=== PATIENT | male | born 1965 | race Caucasian/White ===

== ENCOUNTER → 2024-09-06 13:26 | Outpatient (BNVA) | payer SELFPAY | DX: M25.572 Pain in left ankle and joints of left foot (principal); M25.472 Effusion, left ankle; M77.32 Calcaneal spur, left foot | CPT/HCPCS: 73610; 73630 ==

== ENCOUNTER 2024-09-10 15:44 | Emergency (ER) | payer SELFPAY ==
--- OUTSIDE RECORDS SUMMARY | 2024-09-10 15:49 | XMS_ITS | Referral Summary ---
Author Organization [employer] ([place], [place], [place], [place]) Address [address] [place] [address] Care Team Providers Care Railcar Switcher Name Role Phone Javan Wynn MD Primary Care Provider [phone] Allergies Active Allergy Reactions Criticality Noted Date Comments Hydrocodone-Acetami nophen Other (See Comments) Low 09/19/2014 Liquid- Very hyperactive Medications triamterene-hy drochlorothiaz josh (MAXZIDE) 75-50 mg per tablet Take 1 tablet by mouth daily . Active ALPRAZolam (XANAX) 1 MG tablet Take 1 mg by mouth every night as needed for Anxiety. Activ e metoprolol (TOPROL-XL) 50 MG 24 hr tablet Take 50 mg by mouth 2 (two) times daily. Active telmisartan (MICARDIS) 80 MG tablet Take 80 mg by mouth daily. Active anastrozole (ARIMIDEX) 1 mg tablet Take 1 mg by mouth every Friday, Friday, Friday. Active testosterone enanthate (DELATESTRYL) 200 mg/mL injection Inject intramuscularly every 14 (fourteen) days. Active azelastine (ASTELIN) 137 mcg (0.1 %) nasal spray 03/13/19 20 Active fluticasone propionate (FLONASE) 50 mcg/actuation nasal spray 03/13/19 20 Active Active Problems Problem Noted Date Diagnosed Date Acute carpal tunnel syndrome of right wrist 04/11 Chronic maxillary sinusitis 03/16/2019 MRSA infection 03/16/2019 Osteoarthritis of right knee 12/24/2018 Bucket handle tear of medial meniscus of right k nee 12/24/2018 Bursitis, prepatellar, right 03/10/2018 Carpal tunnel syndrome of left wrist 09/22/2014 Carpal tunnel syndrome of right wrist 09/08/2014 Social History Tobacco Use Types Packs/Day Years Used Date Smoking Tobacco: Never Smokeless Tobacco: Former Snuff Quit: 1998 Alcohol Use Standard Drinks/Week Comments Yes 1.7 (1 standard drink = 0.6 oz p ure alcohol) occasional Food Insecurity Answer Date Recorded Food run out past 12 months Not on file 02/10 Food did not last past 12 months Not on file 02/24/2023 Employment Answer Date Recorded Help finding and keeping a job Not on file 0 02/24/2023 Family and Community Support Answer Jose e Recorded Help with Day to Day Activities Not on file 02/24/2023 Feeling Lonely or Isolated Not on file 02/24 Educational Attainment Answer Date Harry rded Speak language other than Wallisian at home Not on file 02/24/2023 Want help with school or training Not on file 02/24/2023 Substance Use Answer Date Recorded Used prescription meds for non-medical reasons N ot on file 02/24/2023 Used illegal drugs past 12 months Not on file 02/24/2023 Sex and Gender Information Value Date Recorded Sex Assigned at Not on file Legal Sex Male 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 Gender Identity Not on file Sexual Orientation Not on file Last Filed Vital Signs Vital Sign Reading Time Taken Comments Blood Pressure 153/92 05/04/2020 4:30 PM CDT Pulse 81 05/04/2020 4:30 PM CDT Temperature 36.1 C (97 F) 05/04/2020 2:50 PM CDT Respiratory Rate 15 05/04/2020 4:30 PM CDT Oxygen Saturation 96% 05/04/2020 4:30 PM CDT Inhaled Oxygen Concentration - - Weight 133.8 kg (294 lb 15.6 oz) 2020 10:30 AM CDT Height 170.2 cm (5' 7.01 ) 05/04/2020 1 0:30 AM CDT Body Mass Index 46.19 05/04/2020 10:30 AM CDT Plan of Treatment Not on file Medical Devices Implanted Type Area Forest Law And Policy Professor Device Identifier Shelf Expiration Date Model / Serial / Lot Allograft Tiss Ambient 2.0cc [id number] - [id number] Implanted:Qty : 1 on 12/24/2018 by Jadiel James Jr., MD at [facility] IMPLANTS Right: Knee [employer] 06/09/2023 [id number] / [id number] / Insurance BCBS PPO POS EPO CHOICE Advance Directives For more information, please contact: [phone] * Full Code (Latest Code Status on File) Date Activated Date Inactivated Comments 05/04/2020 10:24 AM 05/04/2020 7:14 PM Question Answer Comments This code status was determined by: Patient * Full Code Date Activated Date Inactivated Comments 12/24/2018 10:53 AM 12/25/2018 10:18 AM Question Answer Comments This code status was determined by: Patient * Full Code Date Activated Date Inactivated Comments 03/10/2018 9:56 AM 12/24/2018 10:10 AM Question Answer Comments This code status was determined by: Patient * Full Code Date Activated Date Inactivated Comments 09/22/2014 6:00 AM 09/22/2014 11:20 AM Question Answer Comments This code status was determined by: Patient * Full Code Date Activated Date Inactivated Comments 09/08/2014 8:33 AM 09/08/2014 2:37 PM Question Answer Comments This code status was determined by: Patient Care Teams Railcar Switcher Relationship Specialty Start Date End Date Javan Wynn MD [address] [address] PCP - General Family Medicine 03/04/18
--- OUTSIDE RECORDS SUMMARY | 2024-09-10 15:49 | XMS_ITS | Encounter Summary ---
Author Organization [facility] Address [address] [place] [address] Care Team Providers Care Show Jumping Instructor Name Role Phone Javan Wynn MD Primary Care Provider [phone] Encounter Details Date Type Department Care Team (Late st Contact Info) Description 12/03/2021 Legacy Scanned Document Encounter [facility] - Conversion [address] [place] [address] Social History Tobacco Use Types Packs/Day Years Used Date Smoking Tobacco: Light Smoker Sex and Gender Information Value Date Recorded Sex Assigned at Male 09/16/2023 10:32 AM CDT Legal Sex Male 3:47 PM CDT Gender Identity Male 05/03/2023 3:47 PM CDT Sexual Orientation Not on file documented as of this encounter Plan of Treatment Not on file documented as of this encounter Visit Diagnoses Not on filedocumented in this encounter Care Teams Show Jumping Instructor Relationship Specialty Start Date End Date Javan Wynn MD [address] [place] [phone] PCP - General Family Medicine 11/26/17 documented as of this encounter
--- OUTSIDE RECORDS SUMMARY | 2024-09-10 15:49 | XMS_ITS | Encounter Summary ---
Author Organization [facility] Address [address] [place] [address] Care Team Providers Care Gas Meter Repair Supervisor Name Role Phone Javan Wynn MD Primary Care Provider [phone] Encounter Details Date Type Department Care Team (Late st Contact Info) Description 12/03/2021 Legacy Scanned Document Encounter [facility] - Conversion [address] [place] [address] Social History Tobacco Use Types [...] on filedocumented in this encounter Care Teams Gas Meter Repair Supervisor Relationship Specialty Start Date End Date Javan Wynn MD [address] [place] [phone] PCP - General Family Medicine 11/26/17 documented as of this encounter
--- OUTSIDE RECORDS SUMMARY | 2024-09-10 15:49 | XMS_ITS | Encounter Summary ---
Author Organization [facility] Address [address] [place] [address] Care Team Providers Care Wrapper Stemmer Hand Name Role Phone Javan Wynn MD Primary Care Provider [phone] Encounter Details Date Type Department Care Team (Late st Contact Info) Description 12/03/2021 Legacy Scanned Document Encounter [facility] - Conversion [address] [place] [address] Social History Tobacco Use Types [...] on filedocumented in this encounter Care Teams Wrapper Stemmer Hand Relationship Specialty Start Date End Date Javan Wynn MD [address] [place] [phone] PCP - General Family Medicine 11/26/17 documented as of this encounter
--- OUTSIDE RECORDS SUMMARY | 2024-09-10 15:49 | XMS_ITS | Encounter Summary ---
Author Organization [facility] Address [address] [place] [address] Care Team Providers Care Human Projectile Name Role Phone Javan Wynn MD Primary Care Provider [phone] Encounter Details Date Type Department Care Team (Late st Contact Info) Description 12/03/2021 Legacy Scanned Document Encounter [facility] - Conversion [address] [place] [address] Social History Tobacco Use Types [...] on filedocumented in this encounter Care Teams Human Projectile Relationship Specialty Start Date End Date Javan Wynn MD [address] [place] [phone] PCP - General Family Medicine 11/26/17 documented as of this encounter
--- OUTSIDE RECORDS SUMMARY | 2024-09-10 15:49 | XMS_ITS | Encounter Summary ---
Author Organization [facility] Address [address] [place] [address] Care Team Providers Care Patient Liaison Name Role Phone Javan Wynn MD Primary Care Provider [phone] Encounter Details Date Type Department Care Team (Late st Contact Info) Description 12/03/2021 Legacy Scanned Document Encounter [facility] - Conversion [address] [place] [address] Social History Tobacco Use Types [...] on filedocumented in this encounter Care Teams Patient Liaison Relationship Specialty Start Date End Date Javan Wynn MD [address] [place] [phone] PCP - General Family Medicine 11/26/17 documented as of this encounter
--- OUTSIDE RECORDS SUMMARY | 2024-09-10 15:49 | XMS_ITS | Clinical Summary ---
Author Organization [employer] ([place], [place], [place], [place]) Address [address] [place] [address] Care Team Providers Care Operations Support Representative Name Role Phone Javan Wynn MD Primary Care Provider Allergies Active Allergy Reactions Criticality Noted Date [...] Carpal tunnel syndrome of right wrist 09/08/2014 Family History Medical History Relation Name Comments Heart disease Father Cancer Mother Relation Name Status Comments Father (Age 68) Mother (Age 66) cancer Social History Tobacco Use Types Packs/Day Years [...] Date Harry rded Speak language other than [place] Islander at home Not on file 02/24/2023 Want help with school or training Not on file 02/24/2023 Substance Use Answer Date Recorded Used prescription meds for non-medical reasons N ot on file 02/24/2023 Used illegal drugs past 12 months Not on file 02/24/2023 Sex and Gender Information Value Date Recorded Sex Assigned at Not on file 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 Gender Identity Not on file Sexual Orientation [...] on file Medical Devices Implanted Type Area Hog Cutter Device Identifier Shelf Expiration Date Model / Serial / Lot Allograft Tiss Ambient 2.0cc [id number] - [id number] Implanted:Qty : 1 on 12/24/2018 by Jadiel James Jr., MD at [facility] IMPLANTS Right: Knee [employer] 06/09/2023 [id number] / [id number] / Insurance BC PPO POS EPO CHOICE Advance Directives For more information, please contact: [phone] * Full Code (Latest Code Status on [...] status was determined by: Patient Care Teams Operations Support Representative Relationship Specialty Start Date End Date Javan Wynn MD [address] [address] PCP - General Family Medicine 03/04/18
--- OUTSIDE RECORDS SUMMARY | 2024-09-10 15:49 | XMS_ITS | Clinical Summary ---
Author Organization [facility] Address [address] [place] [address] [place] [address] Care Team Providers Care Fire Patrol Name Role Phone Javan Wynn MD Primary Care Provider [phone] Allergies Active Allergy Reactions Criticality Noted Date Comments Cefuroxime 03/03/2012 Other Reaction(s): Unknown Data migrated from [facility] on 06/07/14. Originally documented as CEFTIN. Hydrocodone-Acetaminophen Low 09/19/2014 Other Reaction(s): Other (See Comments), Other (See Comments) Liquid- Very hyperactive Medications testosterone cypionate (Depo-Testoster one) 200 MG/ML injectionIndica tions:Hypogonad ism male Inject 1 mL into the shoulder, thigh, or buttocks every 7 days. 4 mL 5 4 Active triamterene-hyd rochlorothiazid e (Maxzide) 75-50 MG tablet 1 tab, PO, Daily, # 660 tab, 10 Refill(s), Pharmacy: [facility] #[id number], 170.18, cm, 09/13/19 9:07:00 CDT, Height, 137.386, kg, 09/13/19 9:07:00 CDT, Weight 1 Active metoprolol succinate XL (Toprol-XL) 50 MG 24 hr tablet Take 50 mg by mouth in the morning and 50 mg in the evening. Active telmisartan (MIcarDIS) 80 MG tablet See Instructions, TAKE 1 TABLET BY MOUTH EVERY DAY, # 420 tab, 0 Refill(s), Pharmacy: [facility] #[id number], 170.18, cm, 09/13/19 9:07:00 CDT, Height, 137.386, kg, 09/13/19 9:07:00 CDT, Weight 1 Active anastrozole (Arimidex) 1 MG chemo tablet See Instructions, TAKE 1 TABLET BY MOUTH 3 TIMES PER WEEK, # 108 tab, 10 Refill(s), Pharmacy: [facility] #[id number], 170.18, cm, 12/18/20 13:07:00 NEUROLOGY STROKE PHYSICIAN, Height, 134.545, kg, 12/18/20 13:07:00 NEUROLOGY STROKE PHYSICIAN, Weight 2 Active polycarbophil 625 MG tablet Take by mouth 1 time each day. Active testosterone cypionate (Depo-Testoster one) 200 MG/ML injectionIndica tions:Hypogonad ism male INJECT 1 ML INTO THE SHOULDER, THIGH, OR BUTTOCKS EVERY 7 DAYS. 4 mL 5 5 12/06/19 25 Active Social History Tobacco Use Types Packs/Day Years Used Date Smoking Tobacco: Light Smoker Sex and Gender Information Value Date Recorded Sex Assigned at Male 09/16/2023 10:32 AM CDT Legal Sex Male 3:47 PM CDT Gender Identity Male 05/03/2023 3:47 PM CDT Sexual Orientation Not on file Last Filed Vital Signs Vital Sign Reading Time Taken Comments Blood Pressure 145/77 11/10/2023 3:20 PM CDT Pulse 76 11/10/2023 3:20 PM CDT Temperature 36 C (96.8 F) 11/10/2023 3:20 PM CDT Respiratory Rate - - Oxygen Saturation 96% 11/10/2023 3:20 PM CDT Inhaled Oxygen Concentration - - Weight 106 kg (234 lb) 11/10/2023 3:20 PM CDT Height 170.2 cm (5' 7 ) 11/10/2023 3:20 PM CDT Body Mass Index 36.65 11/10/2023 3:20 PM CDT Plan of Treatment Health Maintenance Due Date Last Done Comments CT Colonography 1963 FIT-DNA 1963 FIT 1963 FOBT 1963 Sigmoidoscopy 1963 DTaP/Tdap/Td Vaccines (1 - Tdap) 11/18/1982 Pneumococcal Vaccine: 50+ Ye ars (1 of 2 - PCV) 11/18/1982 Pneumococcal Vaccine: Pediat rics (0 to 5 Years) and At-Risk Patients (6 to 64 Years) (1 of 2 - PCV) 11/18/1982 Zoster Vaccines (1 of 2) 11/18/2013 Annual Physical 12/18/2021 12/18/2020 Respiratory Syncytial Virus (RSV) Adult Series (1 - Risk 60-74 years 1-dose series) 2023 Influenza Vaccine (#1) 2024 Lipid Panel 12/18/2025 12/18/2020 Colonoscopy 10/10/2031 10/09/2021 Colorectal Cancer Screening 10/10/2031 HIB Vaccines Aged Out No longer eligi ble based on patient's age to complete this topic HPV Vaccines Aged Out No longer eligi ble based on patient's age to complete this topic Hepatitis A Vaccines Aged Out No long er eligible based on patient's age to complete this topic Hepatitis B Vaccines Aged Out No long er eligible based on patient's age to complete this topic IPV Vaccines Aged Out No longer eligi ble based on patient's age to complete this topic Meningococcal Vaccine Aged Out No quincy ross eligible based on patient's age to complete this topic Rotavirus Vaccines Aged Out No longer eligible based on patient's age to complete this topic Procedures Procedure Name Priority Date/Time Associated Diagnosis Comments COLONOSCOPY Routine 10/09/2021 12:00 AM CDT LIPID PANEL W/CALCULATED LDL Routine 12/18/2020 1:58 PM NEUROLOGY STROKE PHYSICIAN from Last 3 Months or Most Recently Relevant to Health Maintenance Results * Colonoscopy (10/09/2021 12:00 AM CDT) Anatomical Region Laterality Modality Endoscopy 10/09/2021 Narrative 10/09/2021 12:00 AM CDT (12/10/2021 14:02 - Elizabeth Chow) recheck in 1 yr us Generic Conversion ENDOSCOPY PROCEDURE ORDERABLE S Final Result * (ABNORMAL) Lipid Panel w/calculated LDL (12/18/2020 1:58 PM NEUROLOGY STROKE PHYSICIAN) HDL 42 > OR = 40 mg/dL [facility] Triglycerides 122 <150 mg/dL [facility] LDL (Calculated) 108(H) mg/dL [facility] RESULT CONVERSION Comment: Reference range: <100 Desirable range <100 mg/dL for primary prevention; <70 mg/dL for patients with CHD or diabetic patients with > or = 2 CHD risk factors. LDL-C is now calculated using the Kem-Rodriguez calculation, which is a validated novel method providing better accuracy than the Friedewald equation in the estimation of LDL-C. Kem SS et al. BEN. 2013;310(19): 3943-2395 (http://education.[employer]/faq/DRR583) Chol/HDL Ratio 4.1 <5.0 (CALC) [facility] RESULT CONVERSION Non HDL Chol 131(H) <130 mg/dL [facility] RESULT CONVERSION Comment: For patients with diabetes plus 1 major ASCVD risk factor, treating to a non-HDL-C goal of <100 mg/dL (LDL-C of <70 mg/dL) is considered a therapeutic option. Cholesterol 173 <200 mg/dL [facility] RESULT CONVERSION Comment: [facility]: [facility] [address] [place] [phone] Austen Quintanilla Blood 12/18/2020 1:58 PM NEUROLOGY STROKE PHYSICIAN us Javan Wynn MD LAB BLOOD ORDERABLES Final Resul t [facility] RESULT CONVERSION from Last 3 Months or Most Recently Relevant to Health Maintenance Care Teams Fire Patrol Relationship Specialty Start Date End Date Javan Wynn MD [address] [place] [phone] PCP - General Family Medicine 11/26/17
--- OUTSIDE RECORDS SUMMARY | 2024-09-10 15:49 | XMS_ITS | Patient Health Record ---
Author Organization [facility]. Valerio [facility] Address [address] [facility] [address] [place] [address] Care Team Providers Care Financial Analyst Intern Name Role Phone VALERIO MCGREGOR Unavailable [phone] Jadiel James Unavailable Unavailable Reason For Referral No Information Plan Of Treatment No Information Insurance Providers Payer Name Payer Address Payer Phone Subscriber Number Group Number Insured Name Patient Relationship to Insured Coverage Start Date Coverage End Date [facility] [address] [place] [address] [id number] Jimmy Garcia Self - patient is the insured
--- OUTSIDE RECORDS SUMMARY | 2024-09-10 15:49 | XMS_ITS | Encounter Summary ---
Author Organization [facility] Address [address] [place] [address] Care Team Providers Care Kier Drier Name Role Phone Javan Wynn MD Primary Care Provider [phone] Encounter Details Date Type Department Care Team (Late st Contact Info) Description 12/03/2021 Legacy Scanned Document Encounter [facility] - Conversion [address] [place] [address] Social History Tobacco Use Types [...] on filedocumented in this encounter Care Teams Kier Drier Relationship Specialty Start Date End Date Javan Wynn MD [address] [place] [phone] PCP - General Family Medicine 11/26/17 documented as of this encounter
--- OUTSIDE RECORDS SUMMARY | 2024-09-10 15:49 | XMS_ITS | Patient Health Record ---
Author Organization [facility] [address] Address [address] [facility] [address] [place] [address] Care Team Providers Care Construction Engineering Manager Name Role Phone De Randy Riggs Unavailable Reason For Referral No Information Medications Medication SIG (Take, Route, Frequency, Duration) Notes Start Date End Date Status Bactrim DS 800 mg-160 mg 1 tablet oral bid Active Toprol XL 100 mg 1 tablet extended re lease oral bid Active Micardis 20 mg 1 tablet oral qd Active Xanax XR 0.5 mg tablet extended rele ase oral prn Active Problems Problem Type SNOMED Code ICD Code Onset Dates Problem Status W/U Status Risk Notes Problem Benign essential hypertension (3522489) Essential hypertension, benign (401.1) Active confirmed Migrated Problem Edema (28485364) Edema (782.3) Active confirmed Migrated Problem NEEDS 5TH DIGIT! Family history of other cardiovascular diseases (V17.4) Active confirmed Migrated Plan Of Treatment No Information Insurance Providers Payer Name Payer Address Payer Phone Subscriber Number Group Number Insured Name Patient Relationship to Insured Coverage Start Date Coverage End Date [facility] - [employer] [address] [facility] [address] [place] [address] [id number] Jimmy Garcia Self - patient is the insured
--- OUTSIDE RECORDS SUMMARY | 2024-09-10 15:49 | XMS_ITS | Encounter Summary ---
Author Organization [facility] Address [address] [place] [address] Care Team Providers Care Meat Grinder Name Role Phone Javan Wynn MD Primary Care Provider [phone] Encounter Details Date Type Department Care Team (Late st Contact Info) Description 12/03/2021 Legacy Scanned Document Encounter [facility] - Conversion [address] [place] [address] Social History Tobacco Use Types [...] on filedocumented in this encounter Care Teams Meat Grinder Relationship Specialty Start Date End Date Javan Wynn MD [address] [place] [phone] PCP - General Family Medicine 11/26/17 documented as of this encounter
[2024-09-10 15:53] VITALS: BP 125/82; PULSE 98; RESP 16; TEMP 37; O2SAT 100; BMI 36.3
--- NOTE | 2024-09-10 16:17 | W.ED.EXTPRO ---
Documented by User: CHRISTINA Steinberg 09/13/24 08:59 HPI - Extremity Problem General: Chief complaint: Extremity Problem,Nontraumatic Stated complaint: lt leg swollen / hot to touch / painful Time Seen by Provider: 09/10/24 16:03 Source: patient and family Mode of arrival: ambulatory Limitations: no limitations History of Present Illness: Patient normal 58-year-old male to ED today with complaint of pain and swelling involving the left foot and ankle. Patient states on Friday he began noticing swelling to the left foot. No obvious injury or trauma. He states on Friday he was seen at the walk-in clinic and had x-rays of the foot and ankle obtained. He did mention on that visit that he had stepped in a hole the day before and thus was diagnosed with a sprain. Patient states he does remember stepping in the hole but does not feel like he injured anything as he continue to walk and work the rest of the day without any discomfort. Significant other states a few days ago he seemed like he had a low-grade temperature. Patient states he is ambulatory must use the help of a cane due to his pain. He has not noticed any edema or redness to his calf but states he has had a recent long car ride to [place] and is worried about a blood clot. No history of gout. No recent surgeries. Denies any recent cuts, scrapes, abrasions, bites, etc. MD Complaint: extremity pain, extremity swelling, cold extremity, joint swelling and joint pain Onset (ago): day(s) Pain Consistency: constant Location: left and upper extremity Radiation: none Relieving factors: nothing Exacerbating factors: range of motion, weight bearing, walking and palpation Associated symptoms: Reports no associated symptoms and fever(s) (reports low grade temp 99 something a few days ago); Deny chest pain Context: recent travel Related Data Home Medications ?Medication ?Instructions ?Recorded ?Confirmed metoprolol tartrate 50 mg tablet 50 mg PO BID 09/06/24 09/06/24 Previous Rx's ?Medication ?Instructions ?Recorded indomethacin 50 mg capsule 50 mg PO TID 5 days #15 caps 09/10/24 prednisone 20 mg tablet 60 mg (3 x 20 mg) PO ONCE 5 days 09/10/24 #15 tabs Allergies Allergy/AdvReac Type Severity Reaction Status Date / Time acetaminophen (From Vicodin) Allergy Mild ADR-Anxiety Verified 09/10/24 15:55 hydrocodone (From Vicodin) Allergy Mild ADR-Anxiety Verified 09/10/24 15:55 Review of Systems Const: Reports: fever(s) (reports low grade temp 99 something a few days ago); Denies: chills, body aches, fatigue or malaise Card: Denies: chest pain Resp: Denies: dyspnea Musc: Reports: extremity pain (L foot), extremity swelling (L foot), joint pain (L ankle), joint swelling (L ankle) and joint warmth; Denies: joint redness Neuro: Reports: difficulty walking (due to pain in L foot/ankle); Denies: numbness in extremities, weakness in extremities or sensory changes PFSH ED PFSH: Social History Smoking and tobacco/nicotine status: never used tobacco/nicotine Physical Exam Const: COMMON NORMALS: no acute distress, average body habitus, patient oriented x3, no limitations, healthy appearing, alert and well nourished Resp: COMMON NORMALS: normal respiratory effort and clear to auscultation bilaterally AUSCULTATION: clear to auscultation bilaterally Cardio: COMMON NORMALS: regular rate and regular rhythm RATE: regular rate RHYTHM: regular rhythm Extremity: COMMON NORMALS: capillary refill normal GENERAL: Yes normal exam except as noted LEFT LOWER EXTREMITY: Yes ankle joint Left ankle: Yes neurovascular exam (normal) and Yes foot & digits Left foot and digits: Yes neurovascular exam (normal) OTHER: pt has mild edema to dorsum of L foot and throughout L ankle joint; he has maximum tenderness to the ankle joint worse with palpation and ROM-do not feel pain is out of proportion to clinical examination; he has palpable DP/PT pulses; there is no obvious erythema/streaking; no cuts, scrapes, abrasions, bites, bacterial entry points; sensation appears normal; calf is supple; no palpable cords Neuro: COMMON NORMALS: patient oriented x3, moves all extremities, no focal motor deficits and no sensory deficits noted SENSORIUM/ORIENTATION: Yes alert Skin: COMMON NORMALS: no rashes or lesions noted GENERAL SKIN EXAM: no rashes or lesions noted TRAUMA: no lacerations or abrasions Course ED course: XRs from walk in visit a few days ago reviewed and unremarkable/negative for acute injury. US ordered here in ED is negative for DVT. CBC showing a normal white count. Pending remainder of labs at this time. 1643 Vital Signs: Vital signs: Vital Signs Temperature 98.6 F 09/10/24 15:53 Pulse Rate 93 09/10/24 17:54 Respiratory Rate 16 09/10/24 15:53 Blood Pressure 118/68 09/10/24 17:54 Pulse Oximetry 95 09/10/24 17:54 Oxygen Delivery Me thod Room Air 09/10/24 15:53 MDM - Extremity (Nontraumatic) Lab Data 09/10/24 16:31 09/10/24 16:31 Laboratory Results WBC 8.40 10^3/uL (3.29-11.43) 09/10/24 16:31 RBC 5.70 10^6/uL (3.85-5.65) H 09/10/24 16:31 Hgb 15.50 g/dL (11.27-16.99) 09/10/24 16:31 Hct 49.7 % (37-53) 09/10/24 16:31 MCV 87.2 fl (82-101) 09/10/24 16:31 MCH 27.2 pg (27-33) 09/10/24 16:31 MCHC 31.2 g/dL (30-55) 09/10/24 16:31 RDW 13.6 % (12.1-15.1) 09/10/24 16:31 Plt Count 274 10^3/cmm (157-399) 09/10/24 16:31 MPV 9.5 fL (7.4-10.4) 09/10/24 16:31 Neut % (Auto) 71.5 % 09/10/24 16:31 Lymph % (Auto) 17.4 % 09/10/24 16:31 [place] % (Auto) 6.3 % 09/10/24 16:31 Eos % (Auto) 4.0 % 09/10/24 16:31 Baso % (Auto) 0.6 % 09/10/24 16:31 Neut # (Auto) 6.00 10^3/uL (1.8-7.7) 09/10/24 16:31 Lymph # (Auto) 1.5 10^3/uL (0.8-4.8) 09/10/24 16:31 [place] # (Auto) 0.5 10^3/uL (0.2-0.9) 09/10/24 16:31 Eos # (Auto) 0.3 10^3/uL (0.0-0.8) 09/10/24 16:31 Baso # (Auto) 0.1 10^3/uL (0.0-0.1) 09/10/24 16:31 Nucleated RBC % (auto) 0 % 09/10/24 16:31 Nucleated RBCs # 0.0 /100WBC 09/10/24 16:31 Sodium 139 mmol/L (136-145) 09/10/24 16:31 Potassium 4.0 mmol/L (3.5-5.1) 09/10/24 16: Chloride 94 mmol/L (98-107) L 09/10/24 16:31 Carbon Dioxide 29 mmol/L (22-29) 09/10/24 16:31 Anion Gap 20.0 (5-19) H 09/10/24 16:31 BUN 20 mg/dL (8-23) 09/10/24 16:31 Creatinine 0.9 mg/dL (0.7-1.2) 09/10/24 16:31 GFR Calculation 86.1 mL/min (90-130) L 09/10/24 16:31 Glucose 101 mg/dL (65-115) 09/10/24 16:31 Calculated Osmolality 291 mOsm/kg (285-295) 09/10/24 16:31 Uric Acid 6.6 mg/dL (3.4-7.0) 09/10/24 16:31 Calcium 10.1 mg/dL (8.5-10.5) 09/10/24 16:31 Total Bilirubin 0.7 mg/dL (0.15-1.2) 09/10/24 16:31 AST 28 U/L (0-40) 09/10/24 16:31 ALT 38 U/L (0-41) 09/10/24 16:31 Alkaline Phosphatase 100 U/L (40-130) 09/10/24 16:31 C-Reactive Protein 117.6 mg/L (0.0-4.9) H 09/10/24 16:31 Total Protein 8.8 g/dL (6.6-8.7) H 09/10/24 16:31 Albumin 4.4 g/dL (3.5-5.2) 09/10/24 16:31 Globulin 4.4 g/dL (1.3-4.6) 09/10/24 16:31 Discharge Plan Discharge Patient Disposition: Home Clinical Impression: Gout Qualifiers: Gout site: ankle Gout etiology: unspecified cause Chronicity: acute Laterality: left Qualified Code(s): M10.9 - Gout, unspecified Condition: Stable Prescriptions: New prednisone 20 mg tablet 60 mg PO ONCE 5 Days Qty: 15 0RF indomethacin 50 mg capsule 50 mg PO TID 5 Days Qty: 15 0RF Rx Instructions: administer with food or milk No Action metoprolol tartrate 50 mg tablet 50 mg PO BID Discharge Orders: Discharge ED (Routine); Ordered 09/10/24 Ordered By: Kishor Jack Patient Instructions: Opioid Safety, Pain Management Activity Restrictions/Additional Instructions: Gout Discharge Instructions Diagnosis: Acute gout flare, treated with indomethacin and a prednisone taper. Medications: - Indomethacin: Take as prescribed. Monitor for gastrointestinal symptoms (dyspepsia, bleeding), renal dysfunction, and signs of fluid retention. NSAIDs are effective for acute gout but carry risks, especially in patients with underlying renal, gastrointestinal, or cardiovascular disease. - Prednisone: Take as prescribed, following the provided tapering schedule. Short courses (e.g., 30?40 mg/day, tapered over 5?10 days) are effective and generally well tolerated for acute gout. Monitor for mood changes, hyperglycemia, and signs of infection. - Hydrocodone (for breakthrough pain): Use only as needed for severe pain not controlled by the above. Limit use to the minimum necessary, and avoid driving or operating heavy machinery while taking opioids. Return Precautions: - Septic Arthritis: Although the current presentation and laboratory findings (normal WBC, uric acid at upper end of normal, chronically elevated CRP) are most consistent with gout, septic arthritis remains a critical consideration. Instruct the patient to return immediately for: - New or worsening fever - Chills or rigors - Rapidly increasing joint pain, swelling, redness, or warmth - Inability to move the affected joint - Systemic symptoms (e.g., confusion, hypotension) These symptoms warrant urgent re-evaluation and possible joint aspiration, as septic arthritis can coexist with or mimic gout and requires prompt intervention. - Medication Adverse Effects: - Signs of gastrointestinal bleeding (melena, hematemesis, severe abdominal pain) - New or worsening shortness of breath, edema, or chest pain - Severe mood changes, confusion, or psychosis (prednisone) - Allergic reactions (rash, swelling, difficulty breathing) - General: Return for any new or concerning symptoms, inability to tolerate oral medications, or lack of improvement after 3?5 days of therapy. Follow-Up Recommendations: - Schedule follow-up with primary care or rheumatology within 1?2 weeks to assess response to therapy and discuss long-term management. - Consider urate-lowering therapy if there are indications such as >= flares/year, tophi, chronic kidney disease, or radiographic damage. - Serial serum urate measurements may be indicated if urate-lowering therapy is initiated, with a target of <6 mg/dL per [place] [employer] guidelines. Additional Home Treatment Measures: - Topical Ice: Application of ice to the affected joint is conditionally recommended as an adjunct to pharmacologic therapy to reduce pain and inflammation. - Rest and Elevation: Rest the affected joint and elevate as tolerated. - Hydration: Maintain adequate oral hydration unless contraindicated. - Diet and Lifestyle: While evidence for dietary modification in acute flare management is limited, general measures such as limiting alcohol, red meat, and high-fructose foods may be discussed for long-term risk reduction. Instructions Regarding Hydrocodone: - Use hydrocodone only for severe breakthrough pain not controlled by NSAIDs and prednisone. - Take the lowest effective dose for the shortest possible duration. - Avoid combining with other sedating medications or alcohol. - Monitor for signs of opioid side effects (constipation, sedation, confusion, respiratory depression). Patient Education: - Educate on the natural history of gout, the importance of medication adherence, and the need for prompt evaluation if symptoms worsen or new symptoms develop. - Reinforce the importance of follow-up for consideration of urate-lowering therapy and ongoing management. Summary of Núñez Points: - Indomethacin and prednisone are first-line therapies for acute gout flares. - Monitor for signs of septic arthritis and medication adverse effects. - Use hydrocodone sparingly for breakthrough pain. - Follow up within 1?2 weeks for reassessment and consideration of long-term management. Print Language: Icelandic Sign Out Sign Out Data: Patient Sign Out occurred on 09/10/24 at 16:57. Patient's care was discussed, and care was transferred from CHRISTINA Steinberg to CHRISTINA Sanchez. Coding Level of Care Code ED Computational Theory Scientist for Rima Fwd Documented by User: CHRISTINA Sanchez 09/10/24 17:55 HPI - Extremity Problem General: Chief complaint: Extremity Problem,Nontraumatic Stated complaint: lt leg swollen / hot to touch / painful Time Seen by Provider: 09/10/24 16:03 Related Data Home Medications ?Medication ?Instructions ?Recorded ?Confirmed metoprolol tartrate 50 mg tablet 50 mg PO BID 09/06/24 09/06/24 Previous Rx's ?Medication ?Instructions ?Recorded indomethacin 50 mg capsule 50 mg PO TID 5 days #15 caps 09/10/24 prednisone 20 mg tablet 60 mg (3 x 20 mg) PO ONCE 5 days 09/10/24 #15 tabs Allergies Allergy/AdvReac Type Severity Reaction Status Date / Time acetaminophen (From Vicodin) Allergy Mild ADR-Anxiety Verified 09/10/24 15:55 hydrocodone (From Vicodin) Allergy Mild ADR-Anxiety Verified 09/10/24 15:55 [facility] ED PFSH: Social History Smoking and tobacco/nicotine status: never used tobacco/nicotine Course Vital Signs: Vital signs: Vital Signs Temperature 98.6 F 09/10/24 15:53 Pulse Rate 93 09/10/24 17:54 Respiratory Rate 16 09/10/24 15:53 Blood Pressure 118/68 09/10/24 17:54 Pulse Oximetry 95 09/10/24 17:54 Oxygen Delivery Me thod Room Air 09/10/24 15:53 MDM - Extremity (Nontraumatic) Medical Decision Making Care of patient was assumed to me at shift change by CHRISTINA Steinberg. This patient has been dealing with left ankle pain and swelling as been worsening for about a week, initially seen urgent care where he was diagnosed with a sprain but pain had been steadily worsening with reports that he was writhing in bed in the middle of night due to the pain. Denies a history of gout, he has remained ambulatory and has not been febrile or having any palpitations or general feeling of illness. Has been taking NSAIDs and states that this had been only helping a little bit. Comments that he never sees a doctor, but recently had labs drawn and with previous lab work he has always had increased in inflammatory markers, has always been nonspecific and without symptoms. Here he had an ultrasound that ruled out DVT, which was a concern of his. White blood cell count was normal, his vitals have been normal including no tachycardia or fever. CRP was elevated at 117.6, and uric acid though within normal limits was at upper limits of normal and working diagnosis is acute gout. Less likely is a septic joint, I feel that with his ability to bear weight, lack of pain out of proportion to exam, no significant redness or swelling to the joint, and lack of fever or systemic illness favors the diagnosis of gout for which we will begin treatment with indomethacin and prednisone. He was given Toradol here for pain which did help quite a bit, and I thoroughly discussed with the patient return precautions as previously mentioned, and he is to follow-up with his regular provider in [place] within the next 2 weeks for general reevaluation. A couple of Mclean pills were sent home for breakthrough pain, and he is discharged from the ER at this time. Patient and family in the room agrees with this plan. Lab Data 09/10/24 16:31 09/10/24 16:31 Laboratory Results WBC 8.40 10^3/uL (3.29-11.43) 09/10/24 16: RBC 5.70 10^6/uL (3.85-5.65) H 09/10/24 16:31 Hgb 15.50 g/dL (11.27-16.99) 09/10/24 16: Hct 49.7 % (37-53) 09/10/24 16: MCV 87.2 fl (82-101) 09/10/24 16: MCH 27.2 pg (27-33) 09/10/24 16: MCHC 31.2 g/dL (30-55) 09/10/24 16: RDW 13.6 % (12.1-15.1) 09/10/24 16:31 Plt Count 274 10^3/cmm (157-399) 09/10/24 16: MPV 9.5 fL (7.4-10.4) 09/10/24 16: Neut % (Auto) 71.5 % 09/10/24 16: Lymph % (Auto) 17.4 % 09/10/24 16: [place] % (Auto) 6.3 % 09/10/24 16: Eos % (Auto) 4.0 % 09/10/24 16:31 Baso % (Auto) 0.6 % 09/10/24 16: Neut # (Auto) 6.00 10^3/uL (1.8-7.7) 09/10/24 16: Lymph # (Auto) 1.5 10^3/uL (0.8-4.8) 09/10/24 16: [place] # (Auto) 0.5 10^3/uL (0.2-0.9) 09/10/24 16: Eos # (Auto) 0.3 10^3/uL (0.0-0.8) 09/10/24 16: Baso # (Auto) 0.1 10^3/uL (0.0-0.1) 09/10/24 16: Nucleated RBC % (auto) 0 % 09/10/24 16: Nucleated RBCs # 0.0 /100WBC 09/10/24 16:31 Sodium 139 mmol/L (136-145) 09/10/24 16: Potassium 4.0 mmol/L (3.5-5.1) 09/10/24 16: Chloride 94 mmol/L (98-107) L 09/10/24 16: Carbon Dioxide 29 mmol/L (22-29) 09/10/24 16: Anion Gap 20.0 (5-19) H 09/10/24 16: BUN 20 mg/dL (8-23) 09/10/24 16:31 Creatinine 0.9 mg/dL (0.7-1.2) 09/10/24 16:31 GFR Calculation 86.1 mL/min (90-130) L 09/10/24 16: Glucose 101 mg/dL (65-115) 09/10/24 16:31 Calculated Osmolality 291 mOsm/kg (285-295) 09/10/24 16:31 Uric Acid 6.6 mg/dL (3.4-7.0) 09/10/24 16:31 Calcium 10.1 mg/dL (8.5-10.5) 09/10/24 16:31 Total Bilirubin 0.7 mg/dL (0.15-1.2) 09/10/24 16:31 AST 28 U/L (0-40) 09/10/24 16:31 ALT 38 U/L (0-41) 09/10/24 16:31 Alkaline Phosphatase 100 U/L (40-130) 09/10/24 16:31 C-Reactive Protein 117.6 mg/L (0.0-4.9) H 09/10/24 16:31 Total Protein 8.8 g/dL (6.6-8.7) H 09/10/24 16:31 Albumin 4.4 g/dL (3.5-5.2) 09/10/24 16:31 Globulin 4.4 g/dL (1.3-4.6) 09/10/24 16:31 All radiology interpretation(s) finalized by discharge Discharge Plan Discharge Patient Disposition: Home Clinical Impression: Gout Qualifiers: Gout site: ankle Gout etiology: unspecified cause Chronicity: acute Laterality: left Qualified Code(s): M10.9 - Gout, unspecified Condition: Stable Prescriptions: New prednisone 20 mg tablet 60 mg PO ONCE 5 Days Qty: 15 0RF indomethacin 50 mg capsule 50 mg PO TID 5 Days Qty: 15 0RF Rx Instructions: administer with food or milk No Action metoprolol tartrate 50 mg tablet 50 mg PO BID Discharge Orders: Discharge ED (Routine); Ordered 09/10/24 Ordered By: Kishor Jack Patient Instructions: Opioid Safety, Pain Management Activity Restrictions/Additional Instructions: Gout Discharge Instructions Diagnosis: Acute gout flare, treated with indomethacin and a prednisone taper. Medications: - Indomethacin: Take as prescribed. Monitor for gastrointestinal symptoms (dyspepsia, bleeding), renal dysfunction, and signs of fluid retention. NSAIDs are effective for acute gout but carry risks, especially in patients with underlying renal, gastrointestinal, or cardiovascular disease. - Prednisone: Take as prescribed, following the provided tapering schedule. Short courses (e.g., 30?40 mg/day, tapered over 5?10 days) are effective and generally well tolerated for acute gout. Monitor for mood changes, hyperglycemia, and signs of infection. - Hydrocodone (for breakthrough pain): Use only as needed for severe pain not controlled by the above. Limit use to the minimum necessary, and avoid driving or operating heavy machinery while taking opioids. Return Precautions: - Septic Arthritis: Although the current presentation and laboratory findings (normal WBC, uric acid at upper end of normal, chronically elevated CRP) are most consistent with gout, septic arthritis remains a critical consideration. Instruct the patient to return immediately for: - New or worsening fever - Chills or rigors - Rapidly increasing joint pain, swelling, redness, or warmth - Inability to move the affected joint - Systemic symptoms (e.g., confusion, hypotension) These symptoms warrant urgent re-evaluation and possible joint aspiration, as septic arthritis can coexist with or mimic gout and requires prompt intervention. - Medication Adverse Effects: - Signs of gastrointestinal bleeding (melena, hematemesis, severe abdominal pain) - New or worsening shortness of breath, edema, or chest pain - Severe mood changes, confusion, or psychosis (prednisone) - Allergic reactions (rash, swelling, difficulty breathing) - General: Return for any new or concerning symptoms, inability to tolerate oral medications, or lack of improvement after 3?5 days of therapy. Follow-Up Recommendations: - Schedule follow-up with primary care or rheumatology within 1?2 weeks to assess response to therapy and discuss long-term management. - Consider urate-lowering therapy if there are indications such as >= flares/year, tophi, chronic kidney disease, or radiographic damage. - Serial serum urate measurements may be indicated if urate-lowering therapy is initiated, with a target of <6 mg/dL per [place] [employer] guidelines. Additional Home Treatment Measures: - Topical Ice: Application of ice to the affected joint is conditionally recommended as an adjunct to pharmacologic therapy to reduce pain and inflammation. - Rest and Elevation: Rest the affected joint and elevate as tolerated. - Hydration: Maintain adequate oral hydration unless contraindicated. - Diet and Lifestyle: While evidence for dietary modification in acute flare management is limited, general measures such as limiting alcohol, red meat, and high-fructose foods may be discussed for long-term risk reduction. Instructions Regarding Hydrocodone: - Use hydrocodone only for severe breakthrough pain not controlled by NSAIDs and prednisone. - Take the lowest effective dose for the shortest possible duration. - Avoid combining with other sedating medications or alcohol. - Monitor for signs of opioid side effects (constipation, sedation, confusion, respiratory depression). Patient Education: - Educate on the natural history of gout, the importance of medication adherence, and the need for prompt evaluation if symptoms worsen or new symptoms develop. - Reinforce the importance of follow-up for consideration of urate-lowering therapy and ongoing management. Summary of Núñez Points: - Indomethacin and prednisone are first-line therapies for acute gout flares. - Monitor for signs of septic arthritis and medication adverse effects. - Use hydrocodone sparingly for breakthrough pain. - Follow up within 1?2 weeks for reassessment and consideration of long-term management. Print Language: Icelandic Sign Out Sign Out Data: Patient Sign Out occurred on 09/10/24 at 16:57. Patient's care was discussed, and care was transferred from CHRISTINA Steinberg to CHRISTINA Sanchez. Coding Level of Care Code ED Computational Theory Scientist for Rima Vargas
--- NOTE | 2024-09-10 16:19 | USCV_ITS ---
Jimmy Garcia Age: 58 Gender: M : 1965 Exam Date: 09/10/2024 16:32 Ordering Phys: Arlette Isbell Technologist: Exam Location: [facility] [place]_ Indication: lt leg pain and swelling PROCEDURES: Venous duplex imaging was performed in only the left lower extremity. The following venous structures were evaluated: common femoral vein, profunda vein, proximal portion of the greater saphenous vein, superficial femoral vein, and the popliteal vein. In addition, the posterior tibial and peroneal trunk were evaluated. FINDINGS: Normal 2-D Doppler and augmentation and compressibility throughout the lower extremity venous structures. Additional imaging through the proximal calf veins also reveals no thrombus. Limited evaluation of the greater saphenous vein is patent with no thrombus. CONCLUSIONS No evidence of left lower extremity DVT. Sha Grissom MD (Electronically Signed) Final Date: 10 September 2024 16:50 S
[2024-09-10 16:39] LABS: Hematocrit 49.7 % (37-53); Hemoglobin 15.50 g/dL (11.27-16.99); Mean Corpuscular HGB Conc 31.2 g/dL (30-55); Mean Corpuscular Hemoglobin 27.2 pg (27-33); Mean Corpuscular Volume 87.2 fl (82-101); Nucleated Red Blood Cells % 0 %; Platelet Count 274 10^3/cmm (157-399); Red Blood Count 5.70 10^6/uL (3.85-5.65); White Blood Count 8.40 10^3/uL (3.29-11.43)
[2024-09-10 17:03] LABS: Alanine Aminotransferase 38 U/L (0-41); Albumin Level 4.4 g/dL (3.5-5.2); Alkaline Phosphatase 100 U/L (40-130); Anion Gap 20.0 (5-19); Aspartate Amino Transferase 28 U/L (0-40); Blood Urea Nitrogen 20 mg/dL (8-23); Calcium 10.1 mg/dL (8.5-10.5); Carbon Dioxide 29 mmol/L (22-29); Chloride 94 mmol/L (98-107); Creatinine Clr Calc Pharmacy 100.9299; Globulin 4.4 g/dL (1.3-4.6); Glucose 101 mg/dL (65-115); Osmolality Calculated 291 mOsm/kg (285-295); Potassium 4.0 mmol/L (3.5-5.1); Sodium 139 mmol/L (136-145); Total Protein 8.8 g/dL (6.6-8.7); Uric Acid 6.6 mg/dL (3.4-7.0)
[2024-09-10 17:54] VITALS: BP 118/68; PULSE 93; O2SAT 95
[2024-09-10] MEDS: HYDROcodone-acetaminophen 7.5-325 mg Tablet 2 TAB PO (17:54)
== END 2024-09-10 17:57 | disposition home or self-care (01) ==
PROVIDERS: Physician Assistant; Emergency Provider Physician Assistant
DX: M10.072 Idiopathic gout, left ankle and foot (principal)
CPT/HCPCS: 36415; 80053; 84550; 85025; 86140; 93971; 96374; 96375; 99284; J1100; J1885; J9999